=== PATIENT | male | born 1990 | race African-American/Black ===

== ENCOUNTER 2020-08-31 11:06 | Emergency (ER) | payer OTHER ==
[~2020-08-31] VITALS: Ht 172.7 cm; Wt 104.4 kg
[2020-08-31 11:15] VITALS: BP 145/86
--- NOTE | 2020-08-31 11:25 | PHYS DOC ---
Past History Past Medical History: No Pertinent History Adult General Chief Complaint Chief Complaint: DENTAL PROBLEM HPI HPI Patient is a 29-year-old male complaining of dental pain. This is an acute on chronic issue. Patient has poor dentition at baseline, states he has had 48 hours of worsening pain to his lower left molars in his mouth with gingival irritation and swelling around tooth in question. Denies any fever, no other systemic symptoms or fluctuant mass development or drainage but admits focal areas of pain around several teeth that have been infected in the past. He is in the process of scheduling outpatient dental visit but is here in the meantime concern for potential infection needing antibiotics. Reports the pain has been constant for past 12 hours but is responsive to Tylenol and Motrin administration Review of Systems Review of Systems Fourteen body systems of review of systems have been reviewed. See HPI for pertinent positives and negative responses, other hernandez all other systems are negative, non-pertinent or non-contributory Allergies Allergies Allergies Coded Allergies Type Severity Reaction Last Updated Verified No Known Drug Allergies 08/31/20 No Physical Exam Physical Exam Constitutional: Well developed, well nourished, no acute distress, non-toxic appearance. HENT: Normocephalic, atraumatic, bilateral external ears normal, oropharynx moist, no oral exudates, nose normal. Grossly poor dentition, patient has x3 infected dental caries to left lower molars teeth #17, 18, and 19. He has what appears to be a dry socket with absent tooth at #17. No obvious signs of infection, no crepitus, no streaking or other concerning/emergent findings Eyes: PERRLA, EOMI, conjunctiva normal, no discharge. Neck: Normal range of motion, no tenderness, supple, no stridor. Cardiovascular: Heart rate regular per monitor Lungs & Thorax: No respiratory distress or accessory muscle use, bilateral chest rise Abdomen: Abdomen soft, non-tender, bowel sounds present in all quadrants, no guarding or rebound, nonacute abdomen. Skin: Warm, dry, no erythema, no rash. Back: No tenderness, no CVA tenderness. Extremities: No tenderness, no cyanosis, no clubbing, ROM intact, no edema. Neurologic: Alert and oriented X 3, grossly normal motor & sensory function, no focal deficits noted. Psychologic: Affect normal, judgement normal, mood normal. Current Patient Data Vital Signs Vital Signs Date Time Temp Pulse Resp B/P (MAP) Pulse Ox O2 Delivery O2 Flow Rate FiO2 08/31/20 11:15 97.9 71 20 145/86 (105) 99 Room Air EKG EKG [] Radiology/Procedures Radiology/Procedures [] Heart Score HEART Score for Chest Pain: HEART Score for Chest Pain Response (Comments) Value History Slighlty/Non-Suspicious 0 Age < 45 0 Risk Factors No Risk Factors 0 Total 0 Risk Factors: Risk Factors: DM, Current or recent (<one month) smoker, HTN, HLP, family history of CAD, obesity. Risk Scores: Risk Factors: DM, Current or recent (<one month) smoker, HTN, HLP, family history of CAD, obesity. Course & Med Decision Making Course & Med Decision Making ABCs nonconcerning Comprehensive history and physical exam significant for most likely diagnosis of infected dental caries without other emergent and/or surgical issues I discussed little role in further ER diagnostic work-up or intervention. Patient understands and is currently trying to establish an outpatient setting with a dentist In the meantime, joint decision to start amoxicillin, patient was given x1 dose while in ER and tolerated this well I stressed need for close outpatient follow-up to review today's ER visit. Strict return precautions were also discussed at length with good understanding by patient. Patient voiced understanding and agreement with the plan. Patient knows to come back for repeat evaluation if concerning signs or symptoms present prior to outpatient follow-up. Hemodynamically stable, ambulatory and well- appearing at time of disposition. Dragon Disclaimer Dragon Disclaimer This electronic medical record was generated, in whole or in part, using a voice recognition dictation system. Departure Departure: Impression: Primary Impression: Infected dental caries Disposition: 01 DC HOME SELF CARE/HOMELESS Condition: STABLE Referrals: BRENDA ORR MD (PCP) Patient Instructions: Dental Caries Additional Instructions: You were seen for dental pain. There does appear to be early signs of infection at this time and so, you have been given a prescription for amoxicillin. Please take this antibiotic as scheduled to completion. Take Ibuprofen (600- 800mg) and Tylenol (500-650mg) alternating every 4-6 hours to help with inflammation and pain while you contact a dentist for further care. You should return to the ED if you develop worsening pain, fever > 101, swelling, redness, or any other new or concerning symptoms. Unfortunately, your pain is not likely to improve without seeing a dentist for further evaluation and treatment of your poor dentition and dental caries. Scripts Amoxicillin (AMOXICILLIN) 500 Mg Capsule 1 CAP PO TID for DENTAL INFECTION for 4 Days, #12 CAP Prov: AUDREY NUNEZ DO 08/31/20 AUDREY NUNEZ DO Aug 31, 2020 11:25
[2020-08-31] MEDS ORDERED: AMOX500C PO (11:35)
[2020-08-31] MEDS ORDERED: AMOXICILLIN 250 MG CAPSULE PO ONE (11:45)
== END 2020-08-31 11:47 | disposition home or self-care (01) ==
LOC: ER 11:06
DX: K08.89 Other specified disorders of teeth and supporting structures (principal)
CPT/HCPCS: 99283